=== PATIENT | female | born 1980 | race Caucasian/White ===

== ENCOUNTER 2020-05-16 00:27 | Inpatient (IN) | payer MEDICAID, SELFPAY ==
[2020-05-15 23:25] VITALS: BP 119/64; PULSE 83; RESP 18; TEMP 36.6; O2SAT 94; BMI 34.8
[2020-05-15 23:35] VITALS: BMI 35.1
[2020-05-15 23:55] VITALS: O2SAT 95
[2020-05-16] VITALS (10 sets, daily range): BP systolic 106–128; BP diastolic 54–74; PULSE 75–84; RESP 18–24; TEMP 36.3–38.4; O2SAT 92–97
--- NOTE | ~2020-05-16 | XR_ITS ---
EXAMINATION: XR chest 1V portable DATE: 05/21/2020 05:52 INDICATION: COVID-19 pneumonia. TECHNIQUE: A single frontal view of the chest was obtained. COMPARISON: Chest single view 05/16/2020 FINDINGS: There are airspace opacities in all lung zones bilaterally. No pleural effusion or pneumoth orax. The heart size is normal. IMPRESSION: 1. Diffuse lung disease with interval improvement, consistent with pneumonia. Reviewed, dictated and finalized at location A. REPAIR TECHNICIAN
--- NOTE | ~2020-05-16 | CT_ITS ---
EXAMINATION: CTA chest PE protocol DATE: 05/18/2020 04:18 INDICATION: Hypoxia. TECHNIQUE: Computed tomography angiography (CTA) of the chest was performed with 100 mL Omnipaque-350 intravenous contrast timed to evaluate the pulmonary arteries. Coronal maximum intensity projection 3D-reconstructions were created by the technologist. Automated exposure control and iterative reconst ruction technique were employed. The dose-length product was 388.16 mGy-cm. COMPARISON: Chest single view 05/16/20 FINDINGS: The lung volumes are small. There are patchy airspace and groundglass opacities throughout the lungs bilaterally. No pleural effusion. The heart size is normal. No pericardial effusion. There is no pulmonary embolus. There is mild thoracic spondylosis. IMPRESSION: 1. No pulmonary embolus. Sensitivity is mildly decreased by motion artifact. 2. Diffuse lung disease, consistent with pneumonia. Reviewed, dictated and finalized at location A. LIFT TRUCK OPERATOR
--- NOTE | ~2020-05-16 | XR_ITS ---
XR chest 1V portable DATE: 05/16/2020 00:48 INDICATION: Covid pneumonia TECHNIQUE: Portable upright AP chest on May 16, 2020 at 0049 hours COMPARISON: None FINDINGS: There are extensive bilateral patchy consolidating infiltrates throughout the lungs, relati vely sparing only the upper apical areas. Normal heart size. No pleural effusion or pneumothorax. IMPRESSION: Extensive bilateral patchy consolidating infiltrates consistent with severe bilateral pne umonia Reviewed, dictated and finalized at location A. AL ORGANIZATION PROFESSOR IMPRESSION: Extensive bilateral patchy consolidating infiltrates consistent wit h severe bilateral pneumonia
--- NOTE | 2020-05-16 00:22 | ADMGEN ---
This patient, Yue Burt, was admitted to [facility] Surg Room 315-01. Patient/family oriented to hospital policies and general routines including ID bracelet, bed and alarms, visiting hours, pain management, procedures, bathroom and other care routines, personal items, smoking policy, room service/diet, and visiting hours. Information on how to activate the Rapid Response Team has been discussed. Patient/Family are encouraged to report perceived risks to care and to ask questions if they do not understand what they are told or what they should do.
--- NOTE | 2020-05-16 00:30 | PM.IMHP ---
H&P: HPI History of Present Illness Date/Time: 05/16/20 00:30 Chief Complaint: Direct admit for acute respiratory failure Narrative: This is a 40 year old female who was previously known to be healthy and who presented to [facility] secondary to increased shortness of breath today and an ongoing hacking nonproductive cough. The patient has had respiratory symptoms for the past 12 days which include coughing, chest tightness, shortness of breath, and wheezing. She has no previous history of lung illness and denies that any family member has had COVID-19. The patient initially presented to [facility] and was found to be hypoxic into upper 80s on room air. She required to be placed on 2L of oxygen via NC for her hypoxia. CXR demonstrated groundglass opacities. The patient was treated with bronchodilators and steroids. The patient was transferred to our hospital for further care as there were no beds available at [facility]. No other complaints. Review of Systems Review of Systems: All systems reviewed & are unremarkable except as noted in HPI and below PMFSH Family History Family History Other Diabetes mellitus Hypertension Social History Social History Smoking status: Never smoker Alcohol intake: never Substance use: never Gender identity (if verbalized by the patient): Female Spiritual care concerns: No Comments Past medical/surgical histories are unremarkable. Meds Home Medications and Allergies Home Medications Medication Instructions Recorded Confirmed Type No Home Medications 05/16/20 05/16/20 History Allergies Allergy/AdvReac Type Severity Reaction Status Date / Time No Known Allergies Allergy Verified 05/16/20 01:05 Vital Signs Vital Signs - 24 hr 05/15/20 23:25 Temperature 36.6 C Pulse Rate 83 Respiratory Rate 18 Blood Pressure 119/64 Pulse Oximetry 94 Exam Const: General: cooperative, alert, awake, ill appearing and other (Coughing while I am in the room++ ) Nutritional Appearance: well nourished Orientation/consciousness: patient oriented x3 HENMT: Head: normal to inspection General nose exam: Normal external nose present Face and sinus: normal facial exam Mouth: Yes Normal oral and palatal mucosa present and Yes oropharynx normal Eyes: Pupils: Equal, round and reactive pupils present EOM: EOMs intact bilaterally Neck: Neck: supple and no JVD Thyroid: thyroid normal Lymphatic: lymphadenopathy not noted Resp: Effort & Inspection: tachypneic Auscultation: rales bilateral and diffuse Cardio: Rate: regular rate Rhythm: regular rhythm Heart sounds: no murmurs GI: Inspection: normal to inspection Auscultation: normal bowel sounds Skin: General skin exam: normal color and no rashes or lesions noted Neuro: General: patient oriented x3 Cranial nerves: Yes CN's II-XII intact bilaterally and Yes Equal, round and reactive pupils present Speech: normal speech Motor exam (neuro): 5/5 motor strength present throughout Sensory Exam: normal sensation Extrem: General: normal to inspection and no edema Psych: Mental Status: mental status grossly normal Affect: normal affect Assessment and Plan Assessment and plan (1) Acute respiratory failure with hypoxia: Code(s): J96.01 - Acute respiratory failure with hypoxia Status: Acute Assessment and Plan: Admit to med-surg, continue supplemental oxygen, continuous pulse oximetry. Continue treatment for presumed COVID-19 pneumonia. (2) Pneumonia: Code(s): J18.9 - Pneumonia, unspecified organism Status: Acute Assessment and Plan: r/o CAP vs. COVID-19 pneumonia. Blood and sputum cultures, IV antibiotics, bronchodilators. Antitussive agents. (3) Suspected 2019 novel coronavirus infection: Code(s): Z20.822 - Contact with and (suspected) exposure to
[2020-05-16 00:47] LABS: Basophils Percent Auto 0.7 % (0.2-1.2); Eosinophils Percent Auto 0.2 % (0-4.4); Hematocrit 40.1 % (37.0-47.0); Hemoglobin 13.2 g/dL (12.0-15.0); Immature Granulocyte Absolute 0.08 K/mm3 (0.00-0.031); Immature Granulocyte Percent A 1.7 % (0-0.5); Lymphocytes Absolute Auto 0.61 K/mm3 (0.9-3.2); Lymphocytes Percent Auto 13.3 % (18.3-44.2); Mean Corpuscular HGB Conc 32.9 g/dl (32-36); Mean Corpuscular Hemoglobin 29.1 pg (26-34); Mean Corpuscular Volume 88.3 fl (80-100); Mean Platelet Volume 10.6 fl (7.4-10.4); Monocytes Absolute Auto 0.1 K/mm3 (0.1-0.6); Monocytes Percent Auto 2.6 % (2.6-8.5); Neutrophils Absolute Auto 3.7 K/mm3 (1.3-6.7); Neutrophils Percent Auto 81.5 % (45.5-73.1); Platelet Count Result 285 k/mm3 (150-375); Red Blood Count 4.54 M/mm3 (4.2-5.4); Red Cell Distribution Width 12.7 % (11.5-14.5); White Blood Count 4.6 K/mm3 (4.5-10.0)
[2020-05-16 01:12] LABS: Alanine Aminotransferase 97 U/L (4-35); Albumin Level 3.7 g/dL (3.5-5.1); Alkaline Phosphatase 67 U/L (38-126); Anion Gap 6 mmol/L (8-16); Aspartate Amino Transferase 44 U/L (14-36); Bilirubin,Total 0.8 mg/dL (0.2-1.3); Blood Urea Nitrogen 11 mg/dL (7-17); Calcium 8.2 mg/dL (8.4-10.2); Carbon Dioxide 27 mmol/L (22-30); Chloride 104 mmol/L (98-107); Estimated CRCL calculation 113 ml/min; Estimated Glomerular Filt Rate > 60; Glucose 128 mg/dL (65-105); Magnesium 2.5 mg/dL (1.6-2.3); Potassium 4.3 mmol/L (3.4-5.0); Sodium 137 mmol/L (137-145)
[2020-05-16] MEDS: SODIUM CHLORIDE 0.9% IV 1,000 ML 75 ML IV CONT (01:30)
[2020-05-16] MEDS: guaiFENesin/DEXTROMETHORPHAN 10 ML UDC 5 ML PO (01:48)
[2020-05-16] MEDS: ALBUTEROL SULFATE (*SP) INHALER 2 PUFF INHALATION ×3 (03:54→14:27)
[2020-05-16] MEDS: DEXAMETHASONE SOD PHOS INJ 4 MG/ML VIAL 6 MG IV PUSH (08:00)
[2020-05-16] MEDS: ENOXAPARIN 40 MG/0.4 ML SYRINGE SUB-Q ×2 (08:00→21:53)
--- NOTE | 2020-05-16 14:57 | PM.IMPN ---
Progress Note: A&P Assessment and Plan (1) Acute respiratory failure with hypoxia: Code(s): J96.01 - Acute respiratory failure with hypoxia Status: Acute Assessment and Plan: Likely due to pneumonia -suspect COVID-19 -currently on 2l -she is taking very shallow breaths, order spirometer -continue ceftriaxone and azithromycin until PCR is resulted -continue Lovenox -wean oxygen as tolerated (2) Pneumonia: Code(s): J18.9 - Pneumonia, unspecified organism Status: Acute Assessment and Plan: As stated above -COVID versus bacterial pneumonia -await PCR -continue treatment as outlined above (3) Suspected 2019 novel coronavirus infection: Code(s): Z20.822 - Contact with and (suspected) exposure to COVID-19 Status: Acute Assessment and Plan: Continue isolation and above treatment (4) Transaminitis: Code(s): R74.01 - Elevation of levels of liver transaminase levels Status: Acute Assessment and Plan: Mild, likely due to COVID-19 infection -should resolve on its own, monitor Time Spent With Patient Time with patient: 25 - 35 minutes Subjective Date/time seen: 05/16/20 14:57 Interval history: Pt is a 40 year old female here for pneumonia suspect COVID-19. Patient was seen today and states she does well at rest but when she gets up and moves she has significant shortness of breath. She is coughing when she takes big breaths but feels okay at rest. She is eating and drinking well and can taste and smell. She denies chest pain, fevers, chills, nausea, vomiting, leg swelling or headaches. No one in her family that she knows of has COVID-19. Review of Systems Review of Systems: All systems reviewed & are unremarkable except as noted in HPI and below Exam Narrative: Exam Narrative: General: Well developed well nourished patient in NAD HEENT: normocephalic Neck: supple Neuro: Alert and oriented x4 CV:RRR Resp: Decreased breath sounds and she is consistently taking shallow breaths. When she is prompted the take a deeper breath, she coughs Abd: Soft, non distended. No pain to palpation. Positive bowel sounds Extremities: No swelling, erythema, or pain to palpation. Objective Data Vital Signs Vital Signs: Vital Signs - 24 hr 05/15/20 23:25 05/15/20 23:55 05/16/20 04:00 Temperature 97.8 F 98.0 F Pulse Rate 83 84 Respiratory Rate 18 20 Blood Pressure 119/64 106/54 L Pulse Oximetry 94 95 92 05/16/20 04:05 05/16/20 08:00 05/16/20 09:22 Temperature 97.9 F Pulse Rate 75 Respiratory Rate 20 Blood Pressure 109/62 Pulse Oximetry 94 92 92 05/16/20 12:00 05/16/20 12:28 Temperature 97.7 F Pulse Rate 75 75 Respiratory Rate 18 18 Blood Pressure 108/66 Pulse Oximetry 97 97 Intake/Output Intake/Output: Intake & Output 05/13/20 05/14/20 05/15/20 05/16/20 23:59 23:59 23:59 23:59 Intake Total 660 Balance 660 Meds/Results Medications: Active Medications Generic Name Dose Route Start Last Admin Trade Name Freq PRN Reason Stop Dose Admin Acetaminophen 650 mg 05/16/20 00:28 Acetaminophen 325 Mg Tablet PO Q4H PRN Mild Pain (1-3) or Fever Hydrocodone Bitart/Acetaminophen 1 tab 05/16/20 00:28 Hydrocodone/Acetaminophen (*Crx) 5-325 Mg Tablet PO Q4H PRN Moderate Pain (4-6) Albuterol 2 puff 05/16/20 02:00 05/16/20 14:27 Albuterol Sulfate (*Sp) Inhaler INHALATION 2 puff Q6HRT ANIBAL Administration Albuterol 2 puff 05/16/20 00:48 Albuterol Sulfate (*Sp) Inhaler INHALATION Q6HRT PRN Shortness Of Breath Dexamethasone Sodium Phosphate 6 mg 05/16/20 09:00 05/16/20 08:00 Dexamethasone Sod Phos Inj 4 Mg/Ml Vial IV PUSH 05/25/20 09:01 6 mg DAILY ANIBAL Administration Enoxaparin Sodium 40 mg 05/16/20 21:00 Enoxaparin 40 Mg/0.4 Ml Syringe SUB-Q Q12HR ANIBAL Guaifenesin/Dextromethorphan 5 ml 05/16/20 00:41 05/16/20
[2020-05-16 17:37] LABS: SARS-CoV-2 RNA PCR Negative
[2020-05-16] MEDS: ACETAMINOPHEN 325 MG TABLET 650 MG PO (21:54)
[2020-05-17] VITALS: BP 105/63; PULSE 61; RESP 18; TEMP 36.8; O2SAT 98
[2020-05-17] MEDS: ALBUTEROL SULFATE (*SP) INHALER 2 PUFF INHALATION ×5 (05:51→20:56)
[2020-05-17 06:36] LABS: Hemoglobin 12.7 g/dL (12.0-15.0); Mean Corpuscular HGB Conc 32.6 g/dl (32-36); Mean Corpuscular Hemoglobin 29.3 pg (26-34); Mean Corpuscular Volume 90.1 fl (80-100); Mean Platelet Volume 10.6 fl (7.4-10.4); Platelet Count Result 269 k/mm3 (150-375); Red Blood Count 4.33 M/mm3 (4.2-5.4); Red Cell Distribution Width 12.9 % (11.5-14.5); White Blood Count 7.8 K/mm3 (4.5-10.0)
[2020-05-17 07:02] LABS: Alanine Aminotransferase 68 U/L (4-35); Albumin Level 3.4 g/dL (3.5-5.1); Alkaline Phosphatase 58 U/L (38-126); Anion Gap 5 mmol/L (8-16); Aspartate Amino Transferase 34 U/L (14-36); Bilirubin,Total 0.8 mg/dL (0.2-1.3); Blood Urea Nitrogen 14 mg/dL (7-17); CRP 0.7 mg/dL (<1.0); Calcium 8.2 mg/dL (8.4-10.2); Carbon Dioxide 26 mmol/L (22-30); Chloride 108 mmol/L (98-107); Estimated CRCL calculation 113 ml/min; Estimated Glomerular Filt Rate > 60; Glucose 84 mg/dL (65-105); Lactate Dehydrogenase 834 U/L (313-618); Potassium 4.1 mmol/L (3.4-5.0); Sodium 139 mmol/L (137-145)
[2020-05-17] MEDS: DEXAMETHASONE SOD PHOS INJ 4 MG/ML VIAL 6 MG IV PUSH (08:03)
[2020-05-17] MEDS: ENOXAPARIN 40 MG/0.4 ML SYRINGE SUB-Q ×2 (08:04→20:57)
[2020-05-17 10:06] LABS: HIV 1/2 Ab P24 Ag Result Negative (Negative)
[2020-05-17 10:38] LABS: Influenza Control Positive
[2020-05-17 11:21] LABS: Beta HCG Quantitative < 2.39 mIU/ML
--- NOTE | 2020-05-17 13:00 | PM.IMPN ---
Progress Note: A&P Assessment and Plan (1) Acute respiratory failure with hypoxia: Code(s): J96.01 - Acute respiratory failure with hypoxia Status: Acute Assessment and Plan: Likely due to pneumonia -COVID-19 is suspected and although she tested negative, I am going to retest her due to the high rate of false negativity -her symptoms, lab values, and CT are very suggestive of COVID-19. I am going to keep her on the dexamethasone and the 2nd 1 is negative we can stop this. -continue isolation -currently on 2l -she is taking very shallow breaths, continue spirometer -continue ceftriaxone and azithromycin -influenza and HIV negative -continue Lovenox -wean oxygen as tolerated (2) Pneumonia: Code(s): J18.9 - Pneumonia, unspecified organism Status: Acute Assessment and Plan: As stated above -COVID versus bacterial pneumonia -await 2nd PCR -continue treatment as outlined above (3) Suspected 2019 novel coronavirus infection: Code(s): Z20.822 - Contact with and (suspected) exposure to COVID-19 Status: Acute Assessment and Plan: Continue isolation and above treatment (4) Transaminitis: Code(s): R74.01 - Elevation of levels of liver transaminase levels Status: Acute Assessment and Plan: Mild, likely due to COVID-19 infection -improving -should resolve on its own, monitor -if 2nd PCR is negative, consider further workup Additional Plan Subjective Date/time seen: 05/17/20 13:00 Interval history: Pt is a 40 year old female here for pneumonia suspect COVID-19. Patient was seen today and states she does well at rest but has shortness of breath with any movement. She is still coughing but not coughing up anything. She is eating and drinking okay with no nausea, vomiting, diarrhea or constipation. She has no chest pain or leg swelling. Exam Narrative: Exam Narrative: General: Well developed well nourished patient in NAD HEENT: normocephalic Neck: supple Neuro: Alert and oriented x4 CV:RRR Resp: Decreased breath sounds and she is consistently taking shallow breaths. When she is prompted the take a deeper breath, she coughs Abd: Soft, non distended. No pain to palpation. Positive bowel sounds Extremities: No swelling, erythema, or pain to palpation. Objective Data Vital Signs Vital Signs: Vital Signs - 24 hr 05/16/20 16:00 05/16/20 20:00 05/16/20 21:54 Temperature 97.4 F L 101.2 F H Pulse Rate 82 Respiratory Rate 24 H Blood Pressure 128/74 Pulse Oximetry 96 95 05/16/20 23:00 05/17/20 00:00 Temperature 98.4 F 98.3 F Pulse Rate 61 Respiratory Rate 18 Blood Pressure 105/63 Pulse Oximetry 98 Intake/Output Intake/Output: Intake & Output 05/14/20 05/15/20 05/16/20 05/17/20 23:59 23:59 23:59 23:59 Intake Total 1450 1540 Output Total 450 600 Balance 1000 940 Meds/Results Medications: Active Medications Generic Name Dose Route Start Last Admin Trade Name Freq PRN Reason Stop Dose Admin Acetaminophen 650 mg 05/16/20 00:28 05/16/20 21:54 Acetaminophen 325 Mg Tablet PO 650 mg Q4H PRN Administration Mild Pain (1-3) or Fever Hydrocodone Bitart/Acetaminophen 1 tab 05/16/20 00:28 Hydrocodone/Acetaminophen (*Crx) 5-325 Mg Tablet PO Q4H PRN Moderate Pain (4-6) Albuterol 2 puff 05/16/20 02:00 05/17/20 11:24 Albuterol Sulfate (*Sp) Inhaler INHALATION 2 puff Q6HRT ANIBAL Administration Albuterol 2 puff 05/16/20 00:48 Albuterol Sulfate (*Sp) Inhaler INHALATION Q6HRT PRN Shortness Of Breath Dexamethasone Sodium Phosphate 6 mg 05/16/20 09:00 05/17/20 08:03 Dexamethasone Sod Phos Inj 4 Mg/Ml Vial IV PUSH 05/25/20 09:01 6 mg DAILY ANIBAL Administration Enoxaparin Sodium 40 mg 05/16/20 21:00 05/17/20 08:04 Enoxaparin 40 Mg/0.4 Ml Syringe SUB-Q 40 mg Q12HR ANIBAL Administration Guaifenesin/Dextromethorphan 5 ml 0
[2020-05-17 14:00] VITALS: BP 109/47; PULSE 83; RESP 20; TEMP 36.9; O2SAT 96
[2020-05-17 16:00] VITALS: BP 110/65; PULSE 75; RESP 20; TEMP 36.6; O2SAT 94
[2020-05-17 20:00] VITALS: BP 109/65; PULSE 69; RESP 20; TEMP 36.4; O2SAT 91; O2SAT 96
[2020-05-17 23:00] VITALS: O2SAT 91
[2020-05-17 23:11] VITALS: O2SAT 91
[2020-05-18] VITALS (10 sets, daily range): BP systolic 100–111; BP diastolic 53–71; PULSE 68–86; RESP 18–20; TEMP 36.1–36.7; O2SAT 92–96
[2020-05-18 02:05] LABS: Add Urine Microscopic? YES; Appearance Urine Clear (Clear); Bilirubin Urine Negative (Negative); Blood Urine Negative (Negative); Color Urine Yellow (Yellow); Glucose Urine UA Negative (Negative); Ketones Urine Negative (Negative); Leukocyte Esterase Ur Trace LEU/UL (Negative); Mucus Urine Rare /lpf; Nitrate Urine Negative (Negative); Protein Urine Negative (Negative); RBC Urine 0-2 /hpf (0-2); Specific Grav Ur 1.013 (1.001-1.035); Squamous Epithelial Cell Urine Few /hpf (Few)
[2020-05-18 07:47] LABS: Hematocrit 40.2 % (37.0-47.0); Hemoglobin 13.2 g/dL (12.0-15.0); Mean Corpuscular HGB Conc 32.8 g/dl (32-36); Mean Corpuscular Hemoglobin 29.1 pg (26-34); Mean Corpuscular Volume 88.5 fl (80-100); Mean Platelet Volume 10.5 fl (7.4-10.4); Platelet Count Result 309 k/mm3 (150-375); Red Blood Count 4.54 M/mm3 (4.2-5.4); Red Cell Distribution Width 12.8 % (11.5-14.5); White Blood Count 7.4 K/mm3 (4.5-10.0)
[2020-05-18] MEDS: ALBUTEROL SULFATE (*SP) INHALER 2 PUFF INHALATION ×3 (08:08→20:19)
[2020-05-18 08:11] LABS: Alanine Aminotransferase 61 U/L (4-35); Albumin Level 3.6 g/dL (3.5-5.1); Alkaline Phosphatase 61 U/L (38-126); Anion Gap 5 mmol/L (8-16); Aspartate Amino Transferase 32 U/L (14-36); Bilirubin,Total 0.6 mg/dL (0.2-1.3); Blood Urea Nitrogen 12 mg/dL (7-17); CRP 0.9 mg/dL (<1.0); Calcium 8.6 mg/dL (8.4-10.2); Carbon Dioxide 27 mmol/L (22-30); Chloride 107 mmol/L (98-107); Estimated CRCL calculation 98 ml/min; Estimated Glomerular Filt Rate > 60; Glucose 84 mg/dL (65-105); Lactate Dehydrogenase 767 U/L (313-618); Magnesium 2.2 mg/dL (1.6-2.3); Potassium 3.9 mmol/L (3.4-5.0); Sodium 139 mmol/L (137-145)
[2020-05-18] MEDS: DEXAMETHASONE SOD PHOS INJ 4 MG/ML VIAL 6 MG IV PUSH (09:22)
[2020-05-18] MEDS: ENOXAPARIN 40 MG/0.4 ML SYRINGE SUB-Q ×2 (09:22→20:18)
--- NOTE | 2020-05-18 12:44 | PM.IMPN ---
Progress Note: A&P Assessment and Plan (1) Acute respiratory failure with hypoxia: Code(s): J96.01 - Acute respiratory failure with hypoxia Status: Acute Assessment and Plan: Likely due to pneumonia -COVID-19 is suspected and although she tested negative, repeat test has been ordered since her CT looks like viral PNA -her symptoms, lab values, and CT are very suggestive of COVID-19. I am going to keep her on the dexamethasone and the if the 2nd PCR test is negative we can stop this. -continue isolation -currently on RA at rest but needing o2 when ambulating -she is taking shallow breaths, continue spirometer -continue ceftriaxone and azithromycin -influenza and HIV negative -continue Lovenox (2) Pneumonia: Code(s): J18.9 - Pneumonia, unspecified organism Status: Acute Assessment and Plan: As stated above -COVID versus bacterial pneumonia -await 2nd PCR -continue treatment as outlined above (3) Suspected 2019 novel coronavirus infection: Code(s): Z20.822 - Contact with and (suspected) exposure to COVID-19 Status: Acute Assessment and Plan: Continue isolation and above treatment (4) Transaminitis: Code(s): R74.01 - Elevation of levels of liver transaminase levels Status: Acute Assessment and Plan: Mild, likely due to COVID-19 infection -improving -should resolve on its own, monitor Additional Plan Subjective Date/time seen: 05/18/20 12:44 Interval history: Pt is a 40 year old female here for pneumonia suspect COVID-19. Patient was seen today and is feeling a little better. She is able to take bigger breaths but still feels SOB with exertion. She has to walk slow to make sure she doesn't tire when walking to the bathroom. She continue to cough as well. She denies CP, nausea, vomiting, fevers, chills, abdominal pain or leg swelling. She is eating and drinking well. Exam Narrative: Exam Narrative: General: Well developed well nourished patient in NAD HEENT: normocephalic Neck: supple Neuro: Alert and oriented x4 CV:RRR Resp: Decreased breath sounds and she is consistently taking shallow breaths. When she is prompted the take a deeper breath, she coughs Abd: Soft, non distended. No pain to palpation. Positive bowel sounds Extremities: No swelling, erythema, or pain to palpation. Objective Data Vital Signs Vital Signs: Vital Signs - 24 hr 05/17/20 14:00 05/17/20 16:00 05/17/20 20:00 Temperature 98.5 F 97.8 F 97.6 F Pulse Rate 83 75 69 Respiratory Rate 20 20 20 Blood Pressure 109/47 L 110/65 109/65 Pulse Oximetry 96 94 96 05/17/20 23:00 05/17/20 23:11 05/18/20 00:00 Temperature 97.2 F L Pulse Rate 68 Respiratory Rate 20 Blood Pressure 108/71 Pulse Oximetry 91 91 96 05/18/20 00:12 05/18/20 04:00 05/18/20 04:25 Temperature 97.2 F L Pulse Rate 72 Respiratory Rate 20 Blood Pressure 108/65 Pulse Oximetry 94 93 94 05/18/20 06:00 05/18/20 08:00 05/18/20 11:54 Temperature 97.6 F Pulse Rate 78 Respiratory Rate 18 Blood Pressure 103/59 L Pulse Oximetry 94 92 93 Intake/Output Intake/Output: Intake & Output 05/15/20 05/16/20 05/17/20 05/18/20 23:59 23:59 23:59 23:59 Intake Total 1450 2870 980 Output Total 450 1000 300 Balance 1000 1870 680 Meds/Results Medications: Active Medications Generic Name Dose Route Start Last Admin Trade Name Freq PRN Reason Stop Dose Admin Acetaminophen 650 mg 05/16/20 00:28 05/16/20 21:54 Acetaminophen 325 Mg Tablet PO 650 mg Q4H PRN Administration Mild Pain (1-3) or Fever Hydrocodone Bitart/Acetaminophen 1 tab 05/16/20 00:28 Hydrocodone/Acetaminophen (*Crx) 5-325 Mg Tablet PO Q4H PRN Moderate Pain (4-6) Albuterol 2 puff 05/16/20 02:00 05/18/20 08:08 Albuterol Sulfate (*Sp) Inhaler INHALATION 2 puff Q6HRT ANIBAL Administration Albuterol 2 puff 05/16/20 00:48 Albutero
[2020-05-18 20:38] LABS: SARS-CoV-2 RNA PCR Negative
[2020-05-19] MEDS: ALBUTEROL SULFATE (*SP) INHALER 2 PUFF INHALATION ×4 (04:30→20:49)
[2020-05-19 06:00] VITALS: BP 104/73; PULSE 85; RESP 20; TEMP 36.1; O2SAT 92
[2020-05-19] MEDS: DEXAMETHASONE SOD PHOS INJ 4 MG/ML VIAL 6 MG IV PUSH (09:09)
[2020-05-19] MEDS: ENOXAPARIN 40 MG/0.4 ML SYRINGE SUB-Q ×2 (09:10→20:45)
--- NOTE | 2020-05-19 13:55 | PM.IMPN ---
Progress Note: A&P Assessment and Plan (1) Acute respiratory failure with hypoxia: Code(s): J96.01 - Acute respiratory failure with hypoxia Status: Acute Assessment and Plan: Likely due to pneumonia -COVID-19 is suspected and although she tested negative x 2. I am going to continue decadron. -continue isolation -currently on RA at rest but needing o2 when ambulating and gets winded when talking for longer periods of time -she is taking shallow breaths, continue spirometer -continue ceftriaxone and azithromycin -influenza and HIV negative -check urine antigens -continue Lovenox (2) Pneumonia: Code(s): J18.9 - Pneumonia, unspecified organism Status: Acute Assessment and Plan: As stated above -COVID versus bacterial pneumonia -continue treatment as outlined above (3) Suspected 2019 novel coronavirus infection: Code(s): Z20.822 - Contact with and (suspected) exposure to COVID-19 Status: Acute Assessment and Plan: Continue isolation and above treatment (4) Transaminitis: Code(s): R74.01 - Elevation of levels of liver transaminase levels Status: Acute Assessment and Plan: Mild, likely due to PNA -improving -should resolve on its own, monitor Additional Plan Subjective Date/time seen: 05/19/20 13:55 Interval history: Pt is a 40 year old female here for pneumonia. Patient was seen today and is feeling better today. She says she can speak in longer sentences and walk without as much shortness of breath. She still has to go slow and she still feels winded but is able to improved with resting. She continues to cough. She denies CP, nausea, vomiting, fevers, chills, abdominal pain or leg swelling. She is eating and drinking well. Exam Narrative: Exam Narrative: General: Well developed well nourished patient in NAD HEENT: normocephalic Neck: supple Neuro: Alert and oriented x4 CV:RRR Resp: Decreased breath sounds but able to take deeper breaths today but still not able to fully take a breath Abd: Soft, non distended. No pain to palpation. Positive bowel sounds Extremities: No swelling, erythema, or pain to palpation. Objective Data Vital Signs Vital Signs: Vital Signs - 24 hr 05/18/20 16:00 05/18/20 20:00 05/19/20 06:00 Temperature 97.8 F 97 F L 97 F L Pulse Rate 82 79 85 Respiratory Rate 18 20 20 Blood Pressure 100/59 L 111/53 L 104/73 Pulse Oximetry 94 93 92 Intake/Output Intake/Output: Intake & Output 05/16/20 05/17/20 05/18/20 05/19/20 23:59 23:59 23:59 23:59 Intake Total 1450 2870 2010 980 Output Total 450 1000 700 400 Balance 1000 1870 1310 580 Meds/Results Medications: Active Medications Generic Name Dose Route Start Last Admin Trade Name Freq PRN Reason Stop Dose Admin Acetaminophen 650 mg 05/16/20 00:28 05/16/20 21:54 Acetaminophen 325 Mg Tablet PO 650 mg Q4H PRN Administration Mild Pain (1-3) or Fever Hydrocodone Bitart/Acetaminophen 1 tab 05/16/20 00:28 Hydrocodone/Acetaminophen (*Crx) 5-325 Mg Tablet PO Q4H PRN Moderate Pain (4-6) Albuterol 2 puff 05/16/20 02:00 05/19/20 09:01 Albuterol Sulfate (*Sp) Inhaler INHALATION 2 puff Q6HRT ANIBAL Administration Albuterol 2 puff 05/16/20 00:48 Albuterol Sulfate (*Sp) Inhaler INHALATION Q6HRT PRN Shortness Of Breath Dexamethasone Sodium Phosphate 6 mg 05/16/20 09:00 05/19/20 09:09 Dexamethasone Sod Phos Inj 4 Mg/Ml Vial IV PUSH 05/25/20 09:01 6 mg DAILY ANIBAL Administration Enoxaparin Sodium 40 mg 05/16/20 21:00 05/19/20 09:10 Enoxaparin 40 Mg/0.4 Ml Syringe SUB-Q 40 mg Q12HR ANIBAL Administration Guaifenesin/Dextromethorphan 5 ml 05/16/20 00:41 05/16/20 01:48 Guaifenesin/Dextromethorphan 10 Ml Udc PO 5 ml Q4H PRN Administration Cough Azithromycin 500 mg in 250 mls @ 250 mls/hr 05/16/20 09:00 05/19/20 10:03 Zithromax IVPB Infused
[2020-05-19 14:00] VITALS: BP 101/63; PULSE 85; RESP 18; TEMP 36.6; O2SAT 94
[2020-05-19 20:00] VITALS: BP 167/87; PULSE 64; RESP 20; TEMP 36.8; O2SAT 92
[2020-05-19] MEDS: guaiFENesin/DEXTROMETHORPHAN 10 ML UDC 5 ML PO (20:48)
[2020-05-20] VITALS: BP 101/69; PULSE 63; RESP 20; TEMP 37; O2SAT 95
[2020-05-20] MEDS: ALBUTEROL SULFATE (*SP) INHALER 2 PUFF INHALATION ×4 (02:34→20:34)
[2020-05-20 04:00] VITALS: BP 98/54; PULSE 78; RESP 20; TEMP 36.9; O2SAT 93
[2020-05-20 06:15] LABS: Hematocrit 38.1 % (37.0-47.0); Hemoglobin 12.6 g/dL (12.0-15.0); Mean Corpuscular HGB Conc 33.1 g/dl (32-36); Mean Corpuscular Hemoglobin 29.2 pg (26-34); Mean Corpuscular Volume 88.2 fl (80-100); Mean Platelet Volume 10.3 fl (7.4-10.4); Platelet Count Result 318 k/mm3 (150-375); Red Blood Count 4.32 M/mm3 (4.2-5.4); Red Cell Distribution Width 12.6 % (11.5-14.5); White Blood Count 10.4 K/mm3 (4.5-10.0)
[2020-05-20 06:38] LABS: Alanine Aminotransferase 94 U/L (4-35); Albumin Level 3.5 g/dL (3.5-5.1); Alkaline Phosphatase 57 U/L (38-126); Anion Gap 5 mmol/L (8-16); Aspartate Amino Transferase 55 U/L (14-36); Bilirubin,Total 0.5 mg/dL (0.2-1.3); Blood Urea Nitrogen 12 mg/dL (7-17); Calcium 8.3 mg/dL (8.4-10.2); Carbon Dioxide 25 mmol/L (22-30); Chloride 107 mmol/L (98-107); Estimated CRCL calculation 133 ml/min; Estimated Glomerular Filt Rate > 60; Glucose 90 mg/dL (65-105); Potassium 4.5 mmol/L (3.4-5.0); Sodium 137 mmol/L (137-145)
[2020-05-20 08:00] VITALS: BP 98/55; PULSE 78; PULSE 79; RESP 16; RESP 20; TEMP 36.2; O2SAT 92; O2SAT 93
[2020-05-20] MEDS: DEXAMETHASONE SOD PHOS INJ 4 MG/ML VIAL 6 MG IV PUSH (08:20)
[2020-05-20] MEDS: ENOXAPARIN 40 MG/0.4 ML SYRINGE SUB-Q (08:20)
[2020-05-20] MEDS: guaiFENesin/DEXTROMETHORPHAN 10 ML UDC 5 ML PO ×2 (08:27→20:34)
--- NOTE | 2020-05-20 10:48 | PM.IMPN ---
Progress Note: A&P Assessment and Plan (1) Acute respiratory failure with hypoxia: Code(s): J96.01 - Acute respiratory failure with hypoxia Status: Acute Assessment and Plan: Likely due to pneumonia -COVID-19 is suspected and although she tested negative x 2. I am going to continue decadron. -continue isolation -currently on RA at rest but needing o2 when ambulating and gets winded when talking for longer periods of time -will order home o2 for tomorrow. Im unsure if she will be ready tomorrow but they are good for 48 hours and she may leave in 1-2 days if she continues to improve -repeat CXR tomorrow -she is taking shallow breaths, continue spirometer -continue ceftriaxone and azithromycin -influenza and HIV negative -Await urine antigens -continue Lovenox (2) Pneumonia: Code(s): J18.9 - Pneumonia, unspecified organism Status: Acute Assessment and Plan: As stated above -COVID versus bacterial pneumonia -continue treatment as outlined above (3) Suspected 2019 novel coronavirus infection: Code(s): Z20.822 - Contact with and (suspected) exposure to COVID-19 Status: Acute Assessment and Plan: Continue isolation and above treatment (4) Transaminitis: Code(s): R74.01 - Elevation of levels of liver transaminase levels Status: Acute Assessment and Plan: Mild, likely due to PNA -worsened today, will check hepatitis panel tomorrow -should resolve on its own, monitor Additional Plan Subjective Date/time seen: 05/20/20 10:48 Interval history: Pt is a 40 year old female here for pneumonia. Patient was seen today and is feeling better today but still feels winded when walking to the bathroom. She says she can speak in longer sentences and walk without as much shortness of breath but continues to have to sit and take pauses. She denies CP, nausea, vomiting, fevers, chills, abdominal pain or leg swelling. She is eating and drinking well. Exam Narrative: Exam Narrative: General: Well developed well nourished patient in NAD HEENT: normocephalic Neck: supple Neuro: Alert and oriented x4 CV:RRR Resp: Decreased breath sounds but able to take deeper breaths today but still not able to fully take a breath Abd: Soft, non distended. No pain to palpation. Positive bowel sounds Extremities: No swelling, erythema, or pain to palpation. Objective Data Vital Signs Vital Signs: Vital Signs - 24 hr 05/19/20 14:00 05/19/20 20:00 05/20/20 00:00 Temperature 97.9 F 98.2 F 98.6 F Pulse Rate 85 64 63 Respiratory Rate 18 20 20 Blood Pressure 101/63 167/87 H 101/69 Pulse Oximetry 94 92 95 05/20/20 04:00 05/20/20 08:00 Temperature 98.4 F 97.1 F L Pulse Rate 78 79 Respiratory Rate 20 16 Blood Pressure 98/54 L 98/55 L Pulse Oximetry 93 92 Intake/Output Intake/Output: Intake & Output 05/17/20 05/18/20 05/19/20 05/20/20 23:59 23:59 23:59 23:59 Intake Total 2870 2009 2320 500 Output Total 1000 700 400 400 Balance 1870 1310 1920 100 Meds/Results Medications: Active Medications Generic Name Dose Route Start Last Admin Trade Name Freq PRN Reason Stop Dose Admin Acetaminophen 650 mg 05/16/20 00:28 05/16/20 21:54 Acetaminophen 325 Mg Tablet PO 650 mg Q4H PRN Administration Mild Pain (1-3) or Fever Hydrocodone Bitart/Acetaminophen 1 tab 05/16/20 00:28 Hydrocodone/Acetaminophen (*Crx) 5-325 Mg Tablet PO Q4H PRN Moderate Pain (4-6) Albuterol 2 puff 05/16/20 02:00 05/20/20 08:22 Albuterol Sulfate (*Sp) Inhaler INHALATION 2 puff Q6HRT ANIBAL Administration Albuterol 2 puff 05/16/20 00:48 Albuterol Sulfate (*Sp) Inhaler INHALATION Q6HRT PRN Shortness Of Breath Dexamethasone Sodium Phosphate 6 mg 05/16/20 09:00 05/20/20 08:20 Dexamethasone Sod Phos Inj 4 Mg/Ml Vial IV PUSH 05/25/20 09:01 6 mg DAILY ANIBAL Administration Enoxaparin Sodium 40 mg 05/16/20
[2020-05-20 16:00] VITALS: BP 109/69; PULSE 99; RESP 16; TEMP 36.3; O2SAT 93
[2020-05-20 22:00] VITALS: BP 110/50; PULSE 76; RESP 18; TEMP 36.9; O2SAT 92
[2020-05-21] MEDS: ALBUTEROL SULFATE (*SP) INHALER 2 PUFF INHALATION ×4 (02:42→20:24)
[2020-05-21 06:00] VITALS: BP 95/63; PULSE 78; RESP 16; TEMP 36.8; O2SAT 96
[2020-05-21 07:32] LABS: Hematocrit 38.7 % (37.0-47.0); Mean Corpuscular HGB Conc 33.6 g/dl (32-36); Mean Corpuscular Hemoglobin 30.2 pg (26-34); Mean Corpuscular Volume 89.8 fl (80-100); Mean Platelet Volume 10.4 fl (7.4-10.4); Platelet Count Result 296 k/mm3 (150-375); Red Blood Count 4.31 M/mm3 (4.2-5.4); Red Cell Distribution Width 12.9 % (11.5-14.5); White Blood Count 10.3 K/mm3 (4.5-10.0)
[2020-05-21 07:38] LABS: Alanine Aminotransferase 110 U/L (4-35); Albumin Level 3.7 g/dL (3.5-5.1); Alkaline Phosphatase 52 U/L (38-126); Anion Gap 6 mmol/L (8-16); Aspartate Amino Transferase 52 U/L (14-36); Bilirubin,Total 0.6 mg/dL (0.2-1.3); Blood Urea Nitrogen 14 mg/dL (7-17); Calcium 9.1 mg/dL (8.4-10.2); Carbon Dioxide 25 mmol/L (22-30); Chloride 105 mmol/L (98-107); Estimated CRCL calculation 113 ml/min; Estimated Glomerular Filt Rate > 60; Glucose 86 mg/dL (65-105); Potassium 4.6 mmol/L (3.4-5.0); Sodium 136 mmol/L (137-145)
[2020-05-21 08:35] VITALS: O2SAT 95
[2020-05-21] MEDS: DEXAMETHASONE SOD PHOS INJ 4 MG/ML VIAL 6 MG IV PUSH (08:38)
[2020-05-21 08:48] LABS: Hepatitis B Surface Antigen Negative (Negative)
[2020-05-21] MEDS: guaiFENesin/DEXTROMETHORPHAN 10 ML UDC 5 ML PO (08:50)
[2020-05-21 08:54] LABS: HAV RESULT Negative (Negative); Hepatitis B Core IgM Result Negative (Negative)
[2020-05-21 09:05] LABS: Hepatitis C Virus Antibody Negative (Negative)
[2020-05-21 09:06] VITALS: O2SAT 93
--- NOTE | 2020-05-21 12:23 | PM.IMPN ---
Progress Note: A&P Assessment and Plan (1) Pneumonia: Qualifiers: Pneumonia type: due to unspecified organism Laterality: bilateral Lung location: unspecified part of lung Qualified Code(s): J18.9 - Pneumonia, unspecified organism Code(s): J18.9 - Pneumonia, unspecified organism Status: Acute Assessment and Plan: COVID vs. bacterial pneumonia. Urine antigens pending. Sputum culture ordered. Influenza and HIV negative. COVID negative x2 by PCR. Repeat chest XR this AM is improved. Continue therapy with dexamethasone (day 6) in addition to antibiotic therapy with azithromycin and rocephin (day 6). Continue albuterol MDI. Nasal congestion, add saline nasal spray. Encourage incentive spirometer. Continue Lovenox for DVT ppx. (2) Acute respiratory failure with hypoxia: Code(s): J96.01 - Acute respiratory failure with hypoxia Status: Resolved Assessment and Plan: Secondary to pneumonia. See treatment plan above. Resolved, tolerating room air today. (3) Suspected 2019 novel coronavirus infection: Code(s): Z20.822 - Contact with and (suspected) exposure to COVID-19 Status: Acute Assessment and Plan: Continue treatment above. (4) Transaminitis: Code(s): R74.01 - Elevation of levels of liver transaminase levels Status: Acute Assessment and Plan: Mild, may be reactive due to acute infection. Hepatitis panel negative. Monitor CMP. Subjective Date/time seen: 05/21/20 1115 Interval history: Ms. Burt is a pleasant 40yo F admitted for pneumonia. She is improving, feeling better today and is able to walk to the restroom without feeling too short of breath. She is having some anterior chest pressure with deep breaths and coughing but otherwise offers no complaints. She is eating and drinking well without any nausea or vomiting. Review of Systems Review of Systems: All systems reviewed & are unremarkable except as noted in HPI and below Exam Narrative: Exam Narrative: General: Female resting comfortably supine in bed in no acute distress. HEENT: Normocephalic, EOMI, oral mucosa moist. Cardiovascular: Rate and rhythm are regular. Respiratory: Lungs clear to auscultation bilaterally, diminished with short shallow breaths. Mild conversational dyspnea. Tolerating room air. Abdomen: Soft, non-tender, non-distended, bowel sounds present. Extremities: Peripheral pulses intact. No edema or pain to palpation. Neuro: No focal neurological deficits. Speech is clear. Objective Data Vital Signs Vital Signs: Last Vital Signs Temp 97.4 F L 05/21/20 14:00 Pulse 74 05/21/20 14:00 Resp 16 05/21/20 14:00 BP 99/57 L 05/21/20 14:00 Pulse Ox 94 05/21/20 14:00 Intake/Output Intake/Output: Intake & Output 05/18/20 05/19/20 05/20/20 05/21/20 23:59 23:59 23:59 23:59 Intake Total 20090 1830 550 Output Total 700 400 880 450 Balance 1310 1920 950 100 Meds/Results Medications: Active Medications Generic Name Dose Route Start Last Admin Trade Name Freq PRN Reason Stop Dose Admin Acetaminophen 650 mg 05/16/20 00:28 05/16/20 21:54 Acetaminophen 325 Mg Tablet PO 650 mg Q4H PRN Administration Mild Pain (1-3) or Fever Hydrocodone Bitart/Acetaminophen 1 tab 05/16/20 00:28 Hydrocodone/Acetaminophen (*Crx) 5-325 Mg Tablet PO Q4H PRN Moderate Pain (4-6) Albuterol 2 puff 05/16/20 02:00 05/21/20 08:37 Albuterol Sulfate (*Sp) Inhaler INHALATION 2 puff Q6HRT ANIBAL Administration Albuterol 2 puff 05/16/20 00:48 Albuterol Sulfate (*Sp) Inhaler INHALATION Q6HRT PRN Shortness Of Breath Dexamethasone Sodium Phosphate 6 mg 05/16/20 09:00 05/21/20 08:38 Dexamethasone Sod Phos Inj 4 Mg/Ml Vial IV PUSH 05/25
[2020-05-21 14:00] VITALS: BP 99/57; PULSE 74; RESP 16; TEMP 36.3; O2SAT 94
[2020-05-21] MEDS: SALINE 0.65% NAS SOLN 44 ML BTL 1 SPRAY NASAL (14:57)
[2020-05-21 21:58] VITALS: BP 98/62; PULSE 87; RESP 18; TEMP 36.3; O2SAT 94
[2020-05-22 05:49] VITALS: BP 98/50; PULSE 65; RESP 18; TEMP 36.9; O2SAT 96
[2020-05-22 06:23] LABS: Basophils Absolute Auto 0.1 K/mm3 (0.0-0.1); Basophils Percent Auto 0.4 % (0.2-1.2); Eosinophils Percent Auto 0.3 % (0-4.4); Hematocrit 39.5 % (37.0-47.0); Hemoglobin 13.1 g/dL (12.0-15.0); Immature Granulocyte Absolute 0.35 K/mm3 (0.00-0.031); Immature Granulocyte Percent A 3.1 % (0-0.5); Lymphocytes Absolute Auto 2.36 K/mm3 (0.9-3.2); Lymphocytes Percent Auto 20.6 % (18.3-44.2); Mean Corpuscular HGB Conc 33.2 g/dl (32-36); Mean Corpuscular Hemoglobin 29.4 pg (26-34); Mean Corpuscular Volume 88.6 fl (80-100); Mean Platelet Volume 10.1 fl (7.4-10.4); Monocytes Absolute Auto 0.6 K/mm3 (0.1-0.6); Monocytes Percent Auto 5.2 % (2.6-8.5); Neutrophils Percent Auto 70.4 % (45.5-73.1); Platelet Count Result 308 k/mm3 (150-375); Red Blood Count 4.46 M/mm3 (4.2-5.4); Red Cell Distribution Width 12.7 % (11.5-14.5); White Blood Count 11.4 K/mm3 (4.5-10.0)
[2020-05-22 06:45] LABS: Alanine Aminotransferase 107 U/L (4-35); Albumin Level 3.7 g/dL (3.5-5.1); Alkaline Phosphatase 50 U/L (38-126); Anion Gap 6 mmol/L (8-16); Aspartate Amino Transferase 40 U/L (14-36); Bilirubin,Total 0.5 mg/dL (0.2-1.3); Blood Urea Nitrogen 18 mg/dL (7-17); Calcium 8.9 mg/dL (8.4-10.2); Carbon Dioxide 26 mmol/L (22-30); Chloride 103 mmol/L (98-107); Estimated CRCL calculation 113 ml/min; Estimated Glomerular Filt Rate > 60; Glucose 85 mg/dL (65-105); Magnesium 1.9 mg/dL (1.6-2.3); Potassium 4.2 mmol/L (3.4-5.0); Sodium 135 mmol/L (137-145)
[2020-05-22] MEDS: ALBUTEROL SULFATE (*SP) INHALER 2 PUFF INHALATION ×2 (08:39→13:04)
[2020-05-22] MEDS: DEXAMETHASONE SOD PHOS INJ 4 MG/ML VIAL 6 MG IV PUSH (08:39)
[2020-05-22 11:10] VITALS: PULSE 100; O2SAT 94
[2020-05-22 11:11] VITALS: PULSE 104; O2SAT 93
--- NOTE | 2020-05-22 11:14 | PCRCNOTE ---
no supplemental O2 needs.
[2020-05-22 14:00] VITALS: BP 105/66; PULSE 91; RESP 16; TEMP 36.4; O2SAT 96
--- NOTE | 2020-05-22 14:20 | PM.DS ---
DS: Admitting Diagnosis Admitting Diagnosis Admitting Diagnosis: acute respiratory failure, pneumonia DS: Discharge Diagnosis Discharge Diagnosis (1) Pneumonia: Qualifiers: Pneumonia type: due to unspecified organism Laterality: bilateral Lung location: unspecified part of lung Qualified Code(s): J18.9 - Pneumonia, unspecified organism Code(s): J18.9 - Pneumonia, unspecified organism Status: Acute Assessment and Plan: Date of Admission 05/16/20 Date of Discharge/DOS 05/22/20 Ms. Burt is a pleasant 40yo female who has previously known to be healthy and presented to [facility] for evaluation of worsening shortness of breath and ongoing nonproductive cough over the last 12 days prior to arrival. At [facility] she was found to be hypoxic in to upper 80s O2 saturation on room air and was placed on 2 L of oxygen for her hypoxia. Chest x-ray demonstrated bilateral ground-glass opacities in the patient was treated with bronchodilators and steroids. She was transferred to our hospital for further care due to lack of bed availability at [place]. Her case was highly suspicious for COVID-19, however she has now tested negative twice for COVID-19 by PCR. Influenza and HIV testing negative. Urine antigens were negative. She was treated with steroid therapy, dexamethasone for 6 days in addition to IV antibiotic therapy with azithromycin and Rocephin. She was treated with additional supportive care to include albuterol MDI, incentive spirometry, Lovenox for DVT prophylaxis, saline nasal spray. Her oxygen was weaned and she was tolerating room air with adequate oxygen saturations for multiple days prior to discharge. CTA chest demonstrated no pulmonary embolus with sensitivity mildly decreased by motion artifact, diffuse lung disease consistent with pneumonia. She did continue to have some chest tightness and nonproductive cough, but overall was clinically improved with the therapy outlined above. She was hemodynamically stable for discharge on 05/22/2020 with instructions to follow-up with PCP. Repeat chest x-ray 6 weeks. COVID vs. bacterial pneumonia. Urine antigens negative. Sputum culture not able to be obtained, nonproductive cough. Influenza and HIV negative. COVID negative x2 by PCR. Repeat chest XR is improved. Treated with dexamethasone (day 6) in addition to antibiotic therapy with azithromycin and rocephin (day 6), discharged with oral antibiotics to complete the course. Continue albuterol MDI. Nasal congestion, add saline nasal spray. Encourage incentive spirometer. Treated with Lovenox for DVT ppx. (2) Acute respiratory failure with hypoxia: Code(s): J96.01 - Acute respiratory failure with hypoxia Status: Resolved Assessment and Plan: Secondary to pneumonia. See treatment plan above. Resolved, tolerating room air today. (3) Suspected 2019 novel coronavirus infection: Code(s): Z20.822 - Contact with and (suspected) exposure to COVID-19 Status: Acute Assessment and Plan: Continue treatment above. (4) Transaminitis: Code(s): R74.01 - Elevation of levels of liver transaminase levels Status: Acute Assessment and Plan: Mild, may be reactive due to acute infection. Hepatitis panel negative. Monitor CMP. DS: Summary Hospital Course Hospital Course: See above. Time Spent with Patient Time attestation: Total time spent providing and/or coordinating discharge services: 40 minutes. Exam Narrative: Exam Narrative: General: Female resting comfortably supine in bed in no acute distress. HEENT: Normocephalic, EOMI, oral mucosa moist. Cardiovascular: Rate and rhythm are regular. Respiratory: Lungs clear to auscultatio
[2020-05-23 03:53] LABS: Pneumococcal Antigen Urine Not Detected (Not Detected)
[2020-05-24 07:47] LABS: Legionella pneumophila Ag Ur Not Detected (Not Detected)
== END 2020-05-22 16:25 | disposition home or self-care (01) | DRG 139 ==
PROVIDERS: Physician Assistant; Admitting Provider Family Medicine; Visit Provider Physician Assistant
DX: J18.9 Pneumonia, unspecified organism (principal); J96.01 Acute respiratory failure with hypoxia; Z20.822 Contact with and (suspected) exposure to COVID-19; R74.01 Elevation of levels of liver transaminase levels
CPT/HCPCS: 36415; 71045; 71275; 80048; 80053; 80074; 80076; 81001; 82728; 83615; 83735; 84702; 85025; 85027; 86140; 86703; 87040; 87086; 87449; 87804; 87899; 94618; 94640; A9270; C9803; G0432; J0456; J0696; J1100; J1650; J7030; Q9967; U0003; U0005